=== PATIENT | female | born 2000 | race Caucasian/White ===

== ENCOUNTER 2019-10-13 00:37 | Emergency (ER) | payer OTHER ==
[2019-10-13 01:00] LABS: Bilirubin Negative (Negative); Blood, Urine Negative (Negative); Clarity Clear (Clear); Glucose, Urine (Dipstick) Normal (Negative); Leukocyte Negative Leu/uL (Negative); Nitrite Negative (Negative); Pregnancy Test - Urine (BHCG) Negative (Negative); Pregu Control Background? CLEAR/WHITE (CLR/WHITE); Pregu Control Bar Appear? YES (CONTROL BAR); Protein, Urine (Dipstick) Negative (Neg-Trace); Specific Gravity 1.019 (1.002-1.036); Urobilinogen Normal mg/dL (Less than 2)
[2019-10-13 01:20] LABS: #Basophils 0.1 thou/uL (0.0-0.2); #Eosinphils 0.1 thou/uL (0.0-0.7); #Lymphocytes 1.9 thou/uL (1.20-3.40); #Monocytes 0.6 thou/uL (0.11-0.59); #Neutrophils 5.4 thou/uL (1.40-6.50); %Basophils 0.8 % (0.0-1.0); %Eosinophils 1.8 % (0.0-10.0); %Lymphocytes 23.3 % (28.0-48.0); %Monocytes 6.9 % (0.0-4.0); %Neutrophils 67.2 % (31.0-61.0); Hemoglobin 13.5 g/dL (12.0-16.0); Mean Corpuscular HGB CONC 34.3 g/dL (32.0-36.0); Mean Corpuscular Hemoglobin 29.8 pg (25.0-35.0); Mean Corpuscular Volume 86.9 fL (78.0-98.0); Mean Platelet Volume 9.1 fL (7.4-10.4); Platelet Count 183 thou/uL (130-400); RBC Distribution Width 10.5 % (11.5-14.5); Red Blood Cell (RBC) Count 4.54 mill/uL (4.00-5.20)
[2019-10-13 01:38] LABS: Anion Gap 13 mmol/L (10-20); BUN (Urea Nitrogen) 8 mg/dL (7.0-18.7); Calc. Creatinine Clearance 0 mL/min (70-130); Calcium 9.3 mg/dL (7.8-10.44); Carbon Dioxide 25 mmol/L (22-29); Chloride 103 mmol/L (98-107); Estimated GFR-MDRD Greater than 90; Glucose 82 mg/dL (70-105); Potassium 3.9 mmol/L (3.5-5.1); Sodium 137 mmol/L (136-145)
--- NOTE | 2019-10-13 08:37 | ULT ---
PRELIMINARY REPORT/[facility]/EMERGENCY AFTER HOURS PROCEDURE: EXAM: US Pelvis, Complete. CLINICAL HISTORY: RLQ pain x 3 days, N/V TECHNIQUE: Transvaginal and transabdominal pelvic ultrasound (complete) with image documentation. COMPARISON: None provided. FINDINGS: ENDOMETRIUM: Normal thickness. Measures 7.2 mm UTERUS/CERVIX: Normal size and contour. No fibroid detected. Measures 7.5 x 4.1 x 5.8 cm RIGHT OVARY: Normal follicles. No adnexal mass. Normal blood flow. Measures 2.7 x 3.0 x 1.7 cm LEFT OVARY: Normal follicles. No adnexal mass. Normal blood flow. Measures 2.9 x 3.2 x 1.1 cm and de monstrates a 1.7 x 1.5 x 1.7 cm paraovarian cyst FREE FLUID: No free fluid. IMPRESSION: Left-sided cyst with no evidence for torsion ELECTRONICALLY SIGNED BY: Mikey Delgadillo MD Oct 13, 2019 2:02:16 AM [employer] This report is intended for review by the ordering physician only, in accordance of law. If you recei ve this report in error, please call [facility] at [phone]. FINAL REPORT EMERGENCY AFTER HOURS PELVIC ULTRASOUND INCLUDING TRANSABDOMINAL AND TRANSVAGINAL AND VASCULAR DUPLEX WITH COLOR AND SPECTRAL DOPPLER IMAGING: Date: 10/13/2019 HISTORY: Right lower quadrant pain for several days with nausea and vomiting. FINDINGS: Uterus and right ovary are within normal limits. 1.5 x 1.7 cm left paraovarian cyst, probably an exop hytic. True ovarian cyst versus a separate left adnexal cyst. No evidence of torsion or abscess or ab normal fluid collection. This report is in agreement with preliminary report by [facility]. POS: OFF
== END 2019-10-13 02:15 | disposition home or self-care (01) ==
LOC: ERS 00:37
DX: R10.31 Right lower quadrant pain (principal); R11.2 Nausea with vomiting, unspecified; D64.9 Anemia, unspecified; F41.9 Anxiety disorder, unspecified; F32.9 Major depressive disorder, single episode, unspecified; Z79.899 Other long term (current) drug therapy
CPT/HCPCS: 36415; 76856; 80048; 81003; 81025; 85025